=== PATIENT | male | born 1985 | race African-American/Black ===

== ENCOUNTER 2016-08-07 12:19 | Emergency (ER) | payer BC ==
[~2016-08-07] VITALS: Ht 182.9 cm; Wt 68.5 kg
[~2016-08-07 12:19] MED LIST: IBUPROFEN 800800 M1 PO; NAPROSYN500 MG PO; TRAMADOL 50 MG50 MG PO
[2016-08-07 12:25] VITALS: BP 119/73
[2016-08-07] MEDS ORDERED: NORFLEX100 MG PO (12:37)
[2016-08-07] MEDS ORDERED: NAPROSYN500 MG PO (12:37)
== END 2016-08-07 12:58 | disposition home or self-care (01) ==
LOC: ER 12:19
DX: S39.012A Strain of muscle, fascia and tendon of lower back, initial encounter (principal); X58.XXXA Exposure to other specified factors, initial encounter; Y93.89 Activity, other specified; Y92.89 Other specified places as the place of occurrence of the external cause; Y99.9 Unspecified external cause status

== ENCOUNTER 2017-03-26 14:30 | Emergency (ER) | payer BC ==
[~2017-03-26] VITALS: Ht 185.4 cm; Wt 72.6 kg
[~2017-03-26 14:30] MED LIST changes: +NORFLEX100 MG PO
[2017-03-26] MEDS ORDERED: NORFLEX100 MG PO (15:54)
[2017-03-26] MEDS ORDERED: NAPROSYN500 MG PO (15:54)
== END 2017-03-26 16:25 | disposition home or self-care (01) ==
LOC: ER 14:30
DX: S46.812A Strain of other muscles, fascia and tendons at shoulder and upper arm level, left arm, initial encounter (principal); F17.210 Nicotine dependence, cigarettes, uncomplicated; Z91.018 Allergy to other foods; X50.1XXA Overexertion from prolonged static or awkward postures, initial encounter; Y93.89 Activity, other specified; Y92.89 Other specified places as the place of occurrence of the external cause; Y99.8 Other external cause status

== ENCOUNTER 2020-08-19 11:40 | Emergency (ER) | payer BC ==
[~2020-08-19] VITALS: Ht 185.4 cm; Wt 77.1 kg
[2020-08-19 12:33] LABS: URINE BILIRUBIN NEGATIVE (Negative); URINE BLOOD NEGATIVE (Negative); URINE CLARITY CLEAR; URINE COLOR YELLOW; URINE GLUCOSE-RANDOM* NEGATIVE (Negative); URINE KETONES 1+ (Negative); URINE LEUKOCYTES-REFLEX TRACE (Negative); URINE NITRITE-REFLEX NEGATIVE (Negative); URINE PROTEIN (DIPSTICK) 2+ (Negative); URINE SPECIFIC GRAVITY 1.015 (1.005-1.035); URINE UROBILINOGEN >= 8.0 E.U./dl (0.2-1.0)
[2020-08-19 12:40] LABS: ABSOLUTE NEUTROPHILS 10.2 thou/uL (1.4-8.2); BASOPHILS 0.3 % (0.0-2.0); EOSINOPHILS 0.1 % (0.0-3.0); HEMATOCRIT 44.3 % (42.0-52.0); HEMOGLOBIN 15.4 gm/dL (14.0-18.0); LYMPHOCYTES 4.9 % (24.0-44.0); MCH 30.9 pg (26.0-34.0); MCHC 34.7 g/dL (28.0-37.0); MCV 89.1 fL (80.0-100.0); MONOCYTES 8.3 % (1.0-8.0); PLATELET COUNT 235 thou/uL (150-400); POLYS 86.4 % (36.0-66.0); RBC 4.98 mil/uL (4.50-6.00); RDW 12.7 % (10.5-14.5); WBC 11.8 thou/uL (4.0-11.0)
[2020-08-19 12:41] LABS: SQUAMOUS 0-3 Few /LPF (0-3)
[2020-08-19 12:42] LABS: AMP/METHAMP Negative (Negative); BARBITURATES Negative (Negative); BENZODIAZEPINES Negative (Negative); COCAINE Negative (Negative); METHADONE Negative (Negative); OPIATES Negative (Negative); PCP Negative (Negative)
[2020-08-19 12:43] LABS: ANION GAP 14 mmol/L (7-16); BUN 12 mg/dL (7-18); CALCIUM 9.3 mg/dL (8.5-10.1); CHLORIDE 99 mmol/L (98-107); CO2 23 mmol/L (21-32); CREATININE 1.3 mg/dL (0.7-1.3); GLUCOSE 108 mg/dL (74-106); POTASSIUM 3.9 mmol/L (3.5-5.1); SODIUM 136 mmol/L (136-145)
[2020-08-19 12:44] LABS: BACTERIA-REFLEX 1-9 Few /HPF (None Seen); CASTS None Seen /LPF (None Seen); CRYSTALS None Seen /LPF (None Seen); MUCUS 0-3 Light strn/LPF (None Seen); URINE RBC 1-2 Rare /HPF (NONE SEEN)
[2020-08-19 12:54] LABS: ALBUMIN 3.9 g/dL (3.4-5.0); LIPASE 36 U/L (73-393); SGOT 20 U/L (15-37); SGPT 33 U/L (30-65); TOTAL BILIRUBIN 0.6 mg/dL (0.2-1.0); TOTAL PROTEIN 8.2 g/dL (6.4-8.2); TROPONIN-I <0.06 ng/mL (<0.06)
--- NOTE | 2020-08-19 13:01 | EKG ---
[place] [address] [employer] [place] [address] ELECTROCARDIOGRAM REPORT Name: MARIPOSA TORRES Room #: [facility] [id number] Admission: 08/19/20 Attend Phys: Discharge: Date of : 81 Report #: [id number] [facility] ED Test Date: 2020-08-19 Test Time: 12:12:04 Pat Name: MARIPOSA TORRES Department: Room: Gender: M [employer]: JOHN : 1985 Requested By: Kristine Dean Order Number: [id number] MD: Martin Parkinson Measurements Intervals [place] Rate: 81 P: 39 [place]: 146 QRS: -21 QRSD: 102 T: 46 QT: 337 QTc: 391 Interpretive Statements Sinus rhythm Probable left ventricular hypertrophy ST elev, probable normal early repol pattern No previous ECG available for comparison Electronically Signed On 08-19-2020 13:01:15 CDT by Martin Parkinson [email or web address] <ELECTRONICALLY SIGNED> By: Martin Parkinson MD, [facility] 08/19/20 1301 1212 1212 Martin Parkinson MD, FACC /EPI
[2020-08-19] MEDS ORDERED: AUGMENTIN 875-1 EACH PO (15:25)
[2020-08-19] MEDS ORDERED: IBU600 MG PO (15:25)
[2020-08-19] MEDS ORDERED: FLEXERIL PO (15:25)
[2020-08-19 15:40] VITALS: BP 128/68
== END 2020-08-19 15:40 | disposition home or self-care (01) ==
LOC: ER 11:40
PROVIDERS: Physician Assistant
DX: J03.90 Acute tonsillitis, unspecified (principal); Z20.822 Contact with and (suspected) exposure to COVID-19; E86.0 Dehydration; Z91.018 Allergy to other foods; F17.210 Nicotine dependence, cigarettes, uncomplicated